=== PATIENT | male | born 1975 | race Caucasian/White ===

== ENCOUNTER 2016-11-20 12:54 | Emergency (ER) | payer BC ==
[2016-11-20] MEDS ORDERED: ASPIRIN 81 MG CHEW TAB ONE (13:36)
[2016-11-20] MEDS ORDERED: KETOROLAC 30 MG/ML VIAL ONE (14:54)
== END 2016-11-20 17:15 | disposition home or self-care (01) ==
LOC: ER 12:54
DX: S29.011A Strain of muscle and tendon of front wall of thorax, initial encounter (principal)
CPT/HCPCS: 36415; 71010; 80053; 82550; 83735; 84484; 85025; 85610; 85730; 93005; 96374